=== PATIENT | female | born 1945 ===

== ENCOUNTER 2017-05-17 14:43 | Outpatient (CLI) | payer OTHER ==
[~2017-05-17 14:43] MED LIST: BAYER CHEWABLE81 MG PO; GABAPENTIN300 MG PO; LOSARTAN-HCTZ1 EAC1 PO; NIFEDIPINE ER30 MG PO; PRILOSEC OTC20 MG PO; SYNTHROID88 MCG PO; [UNRECOGNIZED DRUG - OTHER] PO
== END 2017-05-17 14:54 | disposition home or self-care (01) ==
LOC: LAB 14:43
DX: N39.0 Urinary tract infection, site not specified (principal); R82.79 Other abnormal findings on microbiological examination of urine

== ENCOUNTER → 2017-06-05 | Day surgery (SDC) | payer OTHER ==
[~2017-06-05] MED LIST changes: +MACROBID 100 M100 MG PO; +ULTRACET PO
== END | disposition home or self-care (01) ==
LOC: CIR.AMB 05:16
DX: N88.4 Hypertrophic elongation of cervix uteri (principal); N72 Inflammatory disease of cervix uteri